=== PATIENT | male | born 1990 ===

== ENCOUNTER 2017-11-21 20:22 | Emergency (ER) | payer OTHER ==
[2017-11-21 20:27] VITALS: BP 135/80; PULSE 80; RESP 18; TEMP 97.7; O2SAT 100
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
--- NOTE | 2017-11-22 09:45 | CT ---
PROCEDURE: CT HEAD WITHOUT CONTRAST. HISTORY: r/o bleed COMPARISON: None available. TECHNIQUE: Axial computed tomography images were obtained through the head/brain without intravenous contrast. Radiation dose: Total exam DLP = 1044.0 mGy-cm. This CT exam was performed using one or more of the following dose reduction techniques: Automated exposure control, adjustment of the mA and/or kV according to patient size, and/or use of iterative reconstruction technique. FINDINGS: HEMORRHAGE: No intracranial hemorrhage. BRAIN: No mass effect or edema. No atrophy or chronic microvascular ischemic changes. VENTRICLES: Unremarkable. No hydrocephalus. CALVARIUM: Unremarkable. PARANASAL SINUSES: Right maxillary sinus polyp or retention cyst. No significant inflammatory changes. MASTOID AIR CELLS: Unremarkable as visualized. No inflammatory changes. OTHER FINDINGS: None. IMPRESSION: No acute intracranial pathology.
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
== END 2017-11-21 23:04 | disposition home or self-care (01) ==
LOC: H.ER 20:22
DX: S13.4XXA Sprain of ligaments of cervical spine, initial encounter (principal); M54.5 Low back pain; V49.40XA Driver injured in collision with unspecified motor vehicles in traffic accident, initial encounter
CPT/HCPCS: 70450; 72100; 72125; 96372; 99283; J1885